=== PATIENT | male | born 1935 | race Caucasian/White ===

== ENCOUNTER 2016-06-29 10:44 | Emergency (ER) | payer OTHER ==
[~2016-06-29] VITALS: Ht 167.6 cm; Wt 68.1 kg
[2016-06-29 12:07] LABS: HEMATOCRIT 37.1 % (38.0-50.0); MCHC 32.9 G/DL (30.0-36.0); MCV 88.1 FL (86-99); PLATELET COUNT 269 K/uL (156-360); RBC DIS.WIDTH-CV 13.7 % (11.8-14.6); RBC DIS.WIDTH-SD 43.3 % (39-53); RED BLOOD COUNT 4.21 M/uL (4.00-5.50); WHITE BLOOD COUNT 7.2 K/uL (4.1-10.2)
[2016-06-29 12:15] LABS: CHLORIDE 105 mEq/L (99-109); POTASSIUM 4.1 mEq/L (3.7-5.4); SODIUM 139 mEq/L (136-147)
[2016-06-29 12:17] LABS: GLUCOSE 100 mg/dL (70-99)
[2016-06-29 12:18] LABS: ANION GAP 9 MEQ/L (2-14)
[2016-06-29 12:21] LABS: GFR ESTIMATE (CALCULATED) > 59 mL/min/
[2016-06-29 12:22] LABS: UREA NITROGEN (BUN) 12 mg/dL (9-23)
[2016-06-29 14:09] LABS: BILIRUBIN NEGATIVE; BLOOD NEGATIVE; COLOR YELLOW ((YELLOW)); GLUCOSE (STRIP) NEGATIVE; KETONES 15; LEUKOCYTES NEGATIVE; NITRITE NEGATIVE; PH, URINE 6.5 (5-8); PROTEIN (STRIP) TRACE; SPECIFIC GRAVITY 1.018 (1.000-1.030)
[2016-06-29 14:12] LABS: ADD MIUA? NO
[2016-06-29] MEDS ORDERED: PREDNISONE20 MG PO (14:46)
[2016-06-29 15:05] VITALS: BP 135/60
== END 2016-06-29 15:08 | disposition home or self-care (01) ==
LOC: EME 10:44 → RME 10:44
PROVIDERS: Nurse Practitioner Family
DX: J44.9 Chronic obstructive pulmonary disease, unspecified (principal); R25.1 Tremor, unspecified; I10 Essential (primary) hypertension; Z87.891 Personal history of nicotine dependence
CPT/HCPCS: 71020; 80048; 81003; 85027; 93005; 94640; 99281; 99285; J7512